=== PATIENT | female | born 1940 | race Caucasian/White ===

== ENCOUNTER → 2016-07-17 | Outpatient (CLI) | payer OTHER | LOC: FIMAGING 09:21 | DX: Z12.31 Encounter for screening mammogram for malignant neoplasm of breast (principal); Z85.3 Personal history of malignant neoplasm of breast | CPT/HCPCS: G0202 ==

== ENCOUNTER → 2017-07-18 | Outpatient (CLI) | payer OTHER | LOC: FIMAGING 07:58 | PROVIDERS: ATTEND Family Medicine | DX: Z12.31 Encounter for screening mammogram for malignant neoplasm of breast (principal); Z85.3 Personal history of malignant neoplasm of breast; Z80.3 Family history of malignant neoplasm of breast ==

== ENCOUNTER 2018-01-15 07:10 | Emergency (ER) | payer OTHER ==
[2018-01-15] MEDS ORDERED: HYDROmorphONE/DILAUDID 2 MG/ML INJ IVP ONE ×2 (07:34→08:31)
[2018-01-15] MEDS ORDERED: NS 500 ML IV ONE (07:34)
[2018-01-15] MEDS ORDERED: ONDANSETRON 4 MG/2 ML VIAL IVP ONE (07:34)
--- NOTE | 2018-01-15 07:40 | EDPHY ---
H & P Time Seen by Provider: 01/15/18 07:21 HPI/ROS: HPI Abdominal pain. 77-year-old female by private vehicle with her daughter. This patient reports that at midnight last night she developed mid abdominal pain. She describes this as cramping and aching, deep and across her mid abdomen with radiation to the back. She reports this pain woke her up and kept her up the rest of the night. She has had some nausea but no vomiting. She denies diarrhea. No bloody or melenic stool. Last bowel movement was yesterday. She describes this is normal. Last meal was dinner last night at 7:00 p.m.. Her appendix has been removed. ROS: Constitutional: No fever, no chills. No weakness. Eyes: No discharge. No changes in vision. ENT: No sore throat. No nasal congestion or rhinorrhea. Respiratory: No cough. No shortness of breath. Cardiac: No chest pain, no palpitations. Gastrointestinal: As above, no vomiting, no diarrhea. Genitourinary: No hematuria. No dysuria or increased frequency with urination. Musculoskeletal: No back pain. No neck pain. No myalgias or arthralgias. Skin: No rashes. Neurological: No headache. No focal weakness or altered sensation. Past medical history: Breast cancer, pulmonary embolism. She is not on anticoagulation currently. Social history: Here with her daughter. Nonsmoker. No alcohol. Physical Exam: General Appearance: Alert, she is not in distress. This patient is responding to questions appropriately and in full sentences. This patient appears well- hydrated and well-nourished. Eyes: Pupils equal and round no pallor or injection. No lid edema, erythema or injection. Respiratory: There are no retractions, lungs are clear to auscultation with good air movement bilaterally. Cardiovascular: Regular rate and rhythm. No murmur. Gastrointestinal: Abdomen is soft with tenderness on palpation across the mid and upper abdomen, more focal and intense over the right upper abdomen, no masses, bowel sounds present. No focal tenderness at McBurney's point. No Gannon sign. Neurological: Motor sensory function is grossly intact. Cranial nerves are normal. Gait is normal. Skin: Warm and dry, no rashes. Musculoskeletal: Neck is supple and nontender. Extremities are symmetrical. All joints range without pain or impingement. Psychiatric: No agitation. No depression. Database: EKG: EKG time is 7:26 a.m.; EKG shows a narrow complex normal sinus rhythm with a ventricular rate of 60. Probable left ventricular hypertrophy. QT interval is prolonged at 505 corrected. The SC, QRS, intervals are within normal limits. There are no ST-T wave changes indicative of ischemic or injury pattern. No evidence of right heart strain. Interpreted by me. Imaging: CT abdomen and pelvis with IV contrast: Some constipation involving the right colon. Otherwise, no acute pathology. Her aorta is okay other than some calcification, no evidence of diverticulitis, the appendix is not present. No gallbladder pathology. No other significant findings. Results were discussed with staff radiologist Dr. Vince Brewster. Right upper quadrant ultrasound: Mild right hydronephrosis, otherwise normal. Results were discussed with staff radiologist. Procedures: Emergency department course: An IV was placed. She was placed on a alarm security or surveillance monitor. EKG obtained and reviewed by myself. Triage vital signs reviewed. She is moderately hypertensive. Vital signs otherwise normal. She will be started on IV normal saline with 500 cc to be given over the next hour. She will initially be given 0.25 mg of IV hydromorphone. This will be repeated as needed for pain. She will receive 4 mg of IV Zofran for nausea. Differential diagnosis includes volvulus/bowel obstruction, gallbladder pathology, pancreatitis and aortic dissection. CT imaging will be obtained initially. She endorses. 8:35 a.m., the patient is asking for more pain medication prior to going to CT. She was given 0.5 mg of IV hydromorphone. 9:15 a.m., patient re-evaluated, resting comfortably at this time. Results of her CT imaging and blood work discussed with her. These results were essentially unremarkable. We are waiting on her urinalysis. 10:35 a.m., patient re-evaluated, she appears comfortable but states that she is still having some pain. Repeat abdominal exam she is tender across the upper abdomen and seems more tender in the right upper quadrant. Ultrasound of the right upper quadrant to be obtained. The patient has a normal creatinine in no contraindications to NSAIDs. She will be given 30 mg of IV Toradol. 11:30 a.m., patient re-evaluated resting comfortably at this time. Repeat abdominal exam, she is soft with vague and mild tenderness across the upper abdomen. No peritoneal findings. Her right upper quadrant ultrasound is negative. She reports that the Toradol has helped her. I discussed admitting her for observation and pain control as needed. She does not want to do this at this time. She does feel comfortable going home with her daughter who is present in the room. Follow-up and return to emergency department precautions were thoroughly reviewed with her. All of her questions were answered. She was discharged from the emergency department in good condition. Differential Diagnosis: The differential diagnosis on this patient includes but is not limited to gallstones, cholecystitis, aortic dissection, pancreatitis, volvulus/bowel obstruction, ureterolithiasis. This represents a partial list of diagnoses considered. These considerations are based on history, physical exam, past history, reassessment and diagnostic testing. Smoking Status: Never smoked Constitutional: Initial Vital Signs Temperature (C) 36.7 C 01/15/18 07:15 Heart Rate 58 L 01/15/18 07:15 Respiratory Rate 18 01/15/18 07:15 Blood Pressure 152/60 H 01/15/18 07:15 O2 Sat (%) 99 01/15/18 07:15 O2 Delivery Mode Room Air Allergies/Adverse Reactions: Penicillins Allergy (Verified 08/25/10 14:33) Home Medications: Medication Instructions Recorded NK [No Known Home Meds] 01/15/18 Medical Decision Making - Data Points Laboratory Results: Laboratory Results 01/15/18 07:30 01/15/18 07:30 Medications Given: Discontinued Medications Hydromorphone HCl (Dilaudid) 0.25 mg IVP EDNOW ONE Stop: 01/15/18 07:35 Last Admin: 01/15/18 07:46 Dose: 0.25 mg Hydromorphone HCl (Dilaudid) 0.5 mg IVP EDNOW ONE Stop: 01/15/18 08:32 Last Admin: 01/15/18 08:34 Dose: 0.5 mg Sodium Chloride (Ns) 500 mls @ 0 mls/hr IV EDNOW ONE; Wide Open PRN Reason: Protocol Stop: 01/15/18 07:35 Last Admin: 01/15/18 07:45 Dose: 500 mls Ketorolac Tromethamine (Toradol) 30 mg IVP EDNOW ONE Stop: 01/15/18 10:40 Last Admin: 01/15/18 10:42 Dose: 30 mg Ondansetron HCl (Zofran) 4 mg IVP EDNOW ONE Stop: 01/15/18 07:35 Last Admin: 01/15/18 07:46 Dose: 4 mg Departure - Departure Disposition: Home, Routine, Self-Care Clinical Impression: Abdominal pain Condition: Good Instructions: Abdominal Pain (ED) Additional Instructions: Read and follow provided instructions. Follow-up with your primary care physician tomorrow for re-evaluation. You can start taking ibuprofen tomorrow. Ibuprofen dosin mg every 6 hours with meals for the next 3 days only. Take only as needed for pain. Return to the emergency department for worsening pain, fever, blood in her stool , black stool, vomiting or other serious concerns. Referrals: Jessica Dempsey MD [Primary Care Provider] - As per Instructions
--- NOTE | 2018-01-15 07:43 | CPEKG ---
Test Reason : OPEN Blood Pressure : / mmHG Vent. Rate : 060 BPM Atrial Rate : 060 BPM P-R Int : 151 ms QRS Dur : 090 ms QT Int : 505 ms P-R-T Axes : 065 085 062 degrees QTc Int : 505 ms Sinus rhythm Atrial premature complexes in couplets Borderline right axis deviation Consider left ventricular hypertrophy Prolonged QT interval Confirmed by Fabian Richmond ([id number] on 01/15/2018 7:42:42 AM Referred By: Confirmed By:Fabian Richmond
[2018-01-15 07:46] LABS: PLATELET COUNT 167 10^3/uL (150-400)
[2018-01-15] MEDS ORDERED: IOPAMIDOL (ISOVUE-300) 100 ML BTL ONE (08:06)
[2018-01-15] MEDS ORDERED: KETOROLAC 30 MG/1 ML SDV IVP ONE (10:39)
[2018-01-15 11:39] VITALS: BP 145/66
== END 2018-01-15 11:46 | disposition home or self-care (01) ==
DX: R10.9 Unspecified abdominal pain (principal); E86.9 Volume depletion, unspecified; Z85.3 Personal history of malignant neoplasm of breast
CPT/HCPCS: 74177; 76705; 93005; 96374; 96375; 96376; 99285; J1170; J1885; J2405; Q9967

== ENCOUNTER → 2018-05-06 | Outpatient (CLI) | payer OTHER | LOC: FIMAGING 12:03 | PROVIDERS: ATTEND Internal Medicine Gastroenterology | DX: R10.13 Epigastric pain (principal) | CPT/HCPCS: 78227; A9537 ==

== ENCOUNTER → 2018-07-02 | Outpatient (CLI) | payer OTHER ==
[~2018-07-02] MED LIST: GADOBUTROL 10 ML VIAL IVP ONE
== END ==
LOC: FIMAGING 07:51
PROVIDERS: ATTEND Internal Medicine Gastroenterology
DX: R10.13 Epigastric pain (principal); S33.140A Subluxation of L4/L5 lumbar vertebra, initial encounter
CPT/HCPCS: A9585; C8902; 82565-PO

== ENCOUNTER → 2018-08-07 | Outpatient (CLI) | payer OTHER | LOC: FIMAGING 08:13 | PROVIDERS: ATTEND Family Medicine | DX: Z12.31 Encounter for screening mammogram for malignant neoplasm of breast (principal); Z85.3 Personal history of malignant neoplasm of breast; Z80.3 Family history of malignant neoplasm of breast ==